=== PATIENT | female | born 1960 | race Caucasian/White ===

== ENCOUNTER → 2016-11-27 | Outpatient (CLI) | payer OTHER ==
[2016-11-27 09:54] LABS: HEMOGLOBIN 15.1 gm/dl (12.3-15.3); RED BLOOD COUNT 4.67 M/UL (4.00-5.10); WHITE BLOOD COUNT 7.5 K/UL (4.5-11.0)
[2016-11-27 10:26] LABS: BUN/CREATININE RATIO 28 (0-10)
== END ==
LOC: LAB 09:02
PROVIDERS: Internal Medicine
DX: R53.83 Other fatigue (principal); R53.81 Other malaise; R73.01 Impaired fasting glucose; I10 Essential (primary) hypertension
CPT/HCPCS: 36415; 80053; 80061; 82607; 82652; 82746; 83036; 84439; 84443; 84481; 85025